=== PATIENT | male | born 1945 | race Caucasian/White ===

== ENCOUNTER 2018-10-07 16:47 | Outpatient (REF) | payer OTHER, SELFPAY ==
[2018-10-07 21:04] LABS: Anion Gap 6.9 mmol/L (3-11); BUN 24 mg/dL (7-18); CO2 27.1 mmol/L (21.0-32.0); CREATININE 1.17 mg/dL (0.70-1.30); Calcium 9.7 mg/dL (8.5-10.1); Chloride 105 mmol/L (98-107); Glucose 138 mg/dL (70-100); Potassium 4.6 mmol/L (3.5-5.1); Sodium 139 mmol/L (136-145)
== END 2018-10-07 17:07 ==
LOC: NCHCN 16:47
PROVIDERS: PCP Internal Medicine; Visit Provider Internal Medicine
DX: I95.9 Hypotension, unspecified (principal); E11.9 Type 2 diabetes mellitus without complications
CPT/HCPCS: 80048

== ENCOUNTER 2018-11-03 09:44 | Outpatient (REF) | payer OTHER, SELFPAY ==
[2018-11-03 22:35] LABS: COMMENT (LAB VIEW ONLY) 127.03 mg/dL; Microalb ug/mg Crea 6.5 ug/mg Cr
== END 2018-11-03 10:04 ==
LOC: NCHCN 09:44
PROVIDERS: PCP Internal Medicine; Visit Provider Internal Medicine
DX: E11.9 Type 2 diabetes mellitus without complications (principal)
CPT/HCPCS: 82043; 82570

== ENCOUNTER 2019-10-17 08:20 | Outpatient (REF) | payer OTHER, SELFPAY ==
[2019-10-17 21:19] LABS: Hemoglobin A1C 6.3 % (3.8-5.6)
[2019-10-17 21:30] LABS: ALT 29 U/L (16-63); AST 20 U/L (15-37); Albumin 3.8 g/dL (3.4-5.0); Alkaline Phosphatase 88 U/L (46-116); Anion Gap 8.8 mmol/L (3-11); BUN 16 mg/dL (7-18); Bilirubin, Total 0.8 mg/dL (0.2-1.0); CO2 29.2 mmol/L (21.0-32.0); CREATININE 1.35 mg/dL (0.70-1.30); Calcium 8.8 mg/dL (8.5-10.1); Calculated LDL 86 mg/dL (<100); Chloride 109 mmol/L (98-107); Cholesterol 142 mg/dL (<200); Estimated GFR 51.52 (mL/min/1.73m2); Glucose 124 mg/dL (74-106); HDL Cholesterol 35 mg/dL (40-60); Potassium 4.7 mmol/L (3.5-5.1); Sodium 147 mmol/L (136-145); Total Protein 6.9 g/dL (6.4-8.2); Triglyceride 106 mg/dL (<150)
== END 2019-10-17 08:40 ==
LOC: NCHCN 08:20
PROVIDERS: PCP Internal Medicine; Visit Provider Internal Medicine
DX: E11.9 Type 2 diabetes mellitus without complications (principal)
CPT/HCPCS: 80053; 80061; 83036

== ENCOUNTER 2020-04-16 13:19 | Outpatient (REF) | payer OTHER, SELFPAY ==
[2020-04-16 21:37] LABS: Anion Gap 9.8 mmol/L (3-11); BUN 12 mg/dL (7-18); CO2 25.2 mmol/L (21.0-32.0); CREATININE 1.34 mg/dL (0.70-1.30); Calcium 8.9 mg/dL (8.5-10.1); Chloride 107 mmol/L (98-107); Estimated GFR 51.97 (mL/min/1.73m2); Glucose 160 mg/dL (74-106); Potassium 4.6 mmol/L (3.5-5.1); Sodium 142 mmol/L (136-145)
[2020-04-16 21:54] LABS: Hemoglobin A1C 6.3 % (<5.7)
== END 2020-04-16 13:39 ==
LOC: NCHCN 13:19
PROVIDERS: PCP Internal Medicine; Visit Provider Internal Medicine
DX: E11.9 Type 2 diabetes mellitus without complications (principal)
CPT/HCPCS: 80048; 83036

== ENCOUNTER 2020-10-23 18:11 | Outpatient (REF) | payer OTHER, SELFPAY ==
[2020-10-23 17:30] LABS: HCT 46.5 % (40.0-50.0); HGB 15.3 g/dL (13.5-17.5); MCH 29.6 pg (27.0-33.0); MCHC 32.9 % (32.0-36.0); MCV 89.9 fL (80-95); MPV 10.7 fL (8.0-11.0); Platelet Count 271 10^3/uL (130-400); RBC 5.17 10^6/uL (4.36-5.78); RDW 12.8 % (11.8-14.1); RDW-SD 41.5 fL; WBC 8.47 10^3/uL (4.4-10.8)
[2020-10-23 17:48] LABS: ALT 24 U/L (16-63); AST 18 U/L (15-37); Albumin 3.7 g/dL (3.4-5.0); Alkaline Phosphatase 92 U/L (46-116); Anion Gap 8.2 mmol/L (3-11); BUN 20 mg/dL (7-18); Bilirubin, Total 0.7 mg/dL (0.2-1.0); CO2 27.8 mmol/L (21.0-32.0); CREATININE 1.1 mg/dL (0.70-1.30); Calcium 9.1 mg/dL (8.5-10.1); Chloride 107 mmol/L (98-107); Glucose 126 mg/dL (74-106); Potassium 4.8 mmol/L (3.5-5.1); Sodium 143 mmol/L (136-145); Total Protein 6.6 g/dL (6.4-8.2)
[2020-10-23 17:52] LABS: Hemoglobin A1C 6.6 % (<5.7)
== END 2020-10-23 18:12 | disposition home or self-care (01) ==
LOC: NCHCN 18:11
PROVIDERS: PCP Internal Medicine; Visit Provider Internal Medicine
DX: E11.9 Type 2 diabetes mellitus without complications (principal); Z79.01 Long term (current) use of anticoagulants; I48.0 Paroxysmal atrial fibrillation
CPT/HCPCS: 80053; 85027; 83036

== ENCOUNTER 2022-03-16 13:54 | Outpatient (REF) | payer OTHER, SELFPAY ==
[2022-03-16 15:12] LABS: HCT 47.6 % (40.0-50.0); HGB 15.5 g/dL (13.5-17.5); MCH 29.6 pg (27.0-33.0); MCHC 32.6 % (32.0-36.0); MCV 91 fL (80-95); MPV 10.5 fL (8.0-11.0); Platelet Count 300 10^3/uL (130-400); RBC 5.24 10^6/uL (4.36-5.78); RDW 12.5 % (11.8-14.1); RDW-SD 41.1 fL; WBC 9.28 10^3/uL (4.4-10.8)
[2022-03-16 15:27] LABS: Anion Gap 8.8 mmol/L (3-11); BUN 16 mg/dL (7-18); CO2 27.2 mmol/L (21.0-32.0); CREATININE 1.4 mg/dL (0.70-1.30); Calculated LDL 94 mg/dL (<100); Chloride 104 mmol/L (98-107); Cholesterol 155 mg/dL (<200); Estimated GFR 51.77 (mL/min/1.73m2); Glucose 119 mg/dL (74-106); HDL Cholesterol 42 mg/dL (40-60); Potassium 4.6 mmol/L (3.5-5.1); Sodium 140 mmol/L (136-145); Triglyceride 96 mg/dL (<150)
[2022-03-16 15:41] LABS: Hemoglobin A1C 6.4 % (<5.7)
== END 2022-03-16 13:55 | disposition home or self-care (01) ==
LOC: NCHCN 13:54
PROVIDERS: PCP Internal Medicine; Visit Provider Internal Medicine
DX: Z13.220 Encounter for screening for lipoid disorders (principal); Z51.81 Encounter for therapeutic drug level monitoring; Z78.9 Other specified health status; E11.9 Type 2 diabetes mellitus without complications; E66.9 Obesity, unspecified
CPT/HCPCS: 80048; 80061; 85027; 83036

== ENCOUNTER 2023-01-22 14:20 | Outpatient (REF) | payer OTHER, SELFPAY ==
[2023-01-22 16:22] LABS: COMMENT (LAB VIEW ONLY) 164.76 mg/dL; Microalb ug/mg Crea 8.9 ug/mg Cr
== END 2023-01-22 14:21 | disposition home or self-care (01) ==
LOC: NCHCN 14:20
PROVIDERS: PCP Internal Medicine; Visit Provider Internal Medicine
DX: E11.9 Type 2 diabetes mellitus without complications (principal)
CPT/HCPCS: 82043; 82570

== ENCOUNTER 2023-07-14 17:02 | Outpatient (REF) | payer OTHER, SELFPAY ==
[2023-07-14 14:36] LABS: HCT 36.4 % (40.0-50.0); HGB 10.8 g/dL (13.5-17.5); MCH 23.4 pg (27.0-33.0); MCHC 29.7 % (32.0-36.0); MCV 79 fL (80-95); MPV 10.1 fL (8.0-11.0); Platelet Count 328 10^3/uL (130-400); RBC 4.61 10^6/uL (4.36-5.78); RDW 15.2 % (11.8-14.1); RDW-SD 43.3 fL; WBC 8.31 10^3/uL (4.4-10.8)
[2023-07-14 15:22] LABS: ALT 18 U/L (16-63); AST 15 U/L (15-37); Albumin 3.5 g/dL (3.4-5.0); Alkaline Phosphatase 117 U/L (46-116); Anion Gap 8.6 mmol/L (3-11); BUN 20 mg/dL (7-18); Bilirubin, Total 0.4 mg/dL (0.2-1.0); CO2 27.4 mmol/L (21.0-32.0); CREATININE 1.3 mg/dL (0.70-1.30); Calcium 9.3 mg/dL (8.5-10.1); Chloride 107 mmol/L (98-107); Estimated GFR 55.88 (mL/min/1.73m2); Glucose 106 mg/dL (74-106); Potassium 4.9 mmol/L (3.5-5.1); Sodium 143 mmol/L (136-145); Total Protein 7.4 g/dL (6.4-8.2)
[2023-07-14 15:29] LABS: Hemoglobin A1C 6.6 % (<5.7)
[2023-07-14 18:01] LABS: Vitamin B12 288 pg/mL (193-986)
[2023-07-14 18:11] LABS: Iron 25 ug/dL (65-175)
[2023-07-14 18:25] LABS: Ferritin 14 ng/mL (26-388)
== END 2023-07-14 17:03 | disposition home or self-care (01) ==
LOC: NCHCN 17:02
PROVIDERS: PCP Internal Medicine; Visit Provider Internal Medicine
DX: N18.31 Chronic kidney disease, stage 3a (principal); E11.9 Type 2 diabetes mellitus without complications; D64.9 Anemia, unspecified; Z79.899 Other long term (current) drug therapy
CPT/HCPCS: 80053; 85027; 82607; 82728; 83036; 83540

== ENCOUNTER 2024-02-21 19:24 | Outpatient (REF) | payer OTHER, SELFPAY ==
[2024-02-21 16:59] LABS: HCT 44.7 % (40.0-50.0); HGB 13.8 g/dL (13.5-17.5); MCH 27.9 pg (27.0-33.0); MCHC 30.9 % (32.0-36.0); MCV 90 fL (80-95); MPV 10.6 fL (8.0-11.0); Platelet Count 197 10^3/uL (130-400); RBC 4.95 10^6/uL (4.36-5.78); RDW 15.9 % (11.8-14.1); RDW-SD 51.9 fL; WBC 11.01 10^3/uL (4.4-10.8)
[2024-02-21 17:31] LABS: Iron 107 ug/dL (65-175); Total Iron Binding Capacity 329 ug/dL (250-450); Transferrin Sat 33 % (20-55)
[2024-02-21 17:32] LABS: ALT 48 U/L (16-63); AST 17 U/L (15-37); Alkaline Phosphatase 157 U/L (46-116); Anion Gap 8.7 mmol/L (3-11); BUN 44 mg/dL (7-18); Bilirubin, Total 0.41 mg/dL (0.2-1.0); CO2 25.3 mmol/L (21.0-32.0); CREATININE 1.4 mg/dL (0.70-1.30); Calcium 9.2 mg/dL (8.5-10.1); Chloride 105 mmol/L (98-107); Estimated GFR 51.13 (mL/min/1.73m2); Glucose 472 mg/dL (74-106); Potassium 5.5 mmol/L (3.5-5.1); Sodium 139 mmol/L (136-145); Total Protein 6.1 g/dL (6.4-8.2)
[2024-02-21 18:28] LABS: Ferritin 245 ng/mL (26-388)
== END 2024-02-21 19:25 | disposition home or self-care (01) ==
LOC: NCHCN 19:24
PROVIDERS: PCP Internal Medicine; Visit Provider Internal Medicine
DX: N18.31 Chronic kidney disease, stage 3a (principal)
CPT/HCPCS: 80053; 85027; 82728; 83540; 83550

== ENCOUNTER 2024-04-03 15:05 | Outpatient (REF) | payer OTHER, SELFPAY ==
[2024-04-03 15:41] LABS: HCT 43.7 % (40.0-50.0); HGB 13.7 g/dL (13.5-17.5); MCHC 31.4 % (32.0-36.0); MCV 93 fL (80-95); MPV 10.1 fL (8.0-11.0); Platelet Count 217 10^3/uL (130-400); RBC 4.72 10^6/uL (4.36-5.78); RDW 17.8 % (11.8-14.1); RDW-SD 60.7 fL; WBC 15.34 10^3/uL (4.4-10.8)
[2024-04-03 17:08] LABS: ALT 58 U/L (16-63); AST 13 U/L (15-37); Alkaline Phosphatase 117 U/L (46-116); Anion Gap 7.7 mmol/L (3-11); CO2 25.3 mmol/L (21.0-32.0); CREATININE 1.2 mg/dL (0.70-1.30); Calcium 8.8 mg/dL (8.5-10.1); Chloride 105 mmol/L (98-107); Estimated GFR 61.52 (mL/min/1.73m2); Ferritin 232 ng/mL (26-388); Glucose 338 mg/dL (74-106); Potassium 5.1 mmol/L (3.5-5.1); Sodium 138 mmol/L (136-145); Total Protein 5.9 g/dL (6.4-8.2)
[2024-04-03 17:37] LABS: BUN 39 mg/dL (7-18); Bilirubin, Total 0.54 mg/dL (0.2-1.0)
[2024-04-03 18:51] LABS: Iron 117 ug/dL (65-175); Total Iron Binding Capacity 294 ug/dL (250-450); Transferrin Sat 40 % (20-55)
== END 2024-04-03 15:06 | disposition home or self-care (01) ==
LOC: NCHCN 15:05
PROVIDERS: PCP Internal Medicine; Visit Provider Internal Medicine
DX: R53.83 Other fatigue (principal)
CPT/HCPCS: 80053; 85027; 82728; 83540; 83550

== ENCOUNTER 2024-05-11 21:13 | Outpatient (REF) | payer OTHER, SELFPAY ==
[2024-05-11 21:54] LABS: Anion Gap 8.1 mmol/L (3-11); BUN 12 mg/dL (7-18); CO2 27.9 mmol/L (21.0-32.0); CREATININE 1.2 mg/dL (0.70-1.30); Calcium 9.5 mg/dL (8.5-10.1); Chloride 107 mmol/L (98-107); Estimated GFR 61.52 (mL/min/1.73m2); Glucose 98 mg/dL (74-106); Potassium 4.4 mmol/L (3.5-5.1); Sodium 143 mmol/L (136-145)
== END 2024-05-11 21:14 | disposition home or self-care (01) ==
LOC: NCHCN 21:13
PROVIDERS: PCP Internal Medicine; Visit Provider Internal Medicine
DX: I50.9 Heart failure, unspecified (principal)
CPT/HCPCS: 80048

== ENCOUNTER 2024-05-18 17:16 | Outpatient (REF) | payer OTHER, SELFPAY ==
[2024-05-18 22:08] LABS: Vitamin D 25 Total 16.8 ng/mL (30-100)
== END 2024-05-18 17:17 | disposition home or self-care (01) ==
LOC: NCHCN 17:16
PROVIDERS: PCP Internal Medicine; Visit Provider Internal Medicine
DX: S22.32XG Fracture of one rib, left side, subsequent encounter for fracture with delayed healing (principal)
CPT/HCPCS: 82306

== ENCOUNTER 2024-10-30 18:33 | Outpatient (REF) | payer OTHER, SELFPAY ==
[2024-10-30 17:07] LABS: BUN 21 mg/dL (7-18); CREATININE 1.2 mg/dL (0.70-1.30); Calcium 8.9 mg/dL (8.5-10.1); Chloride 106 mmol/L (98-107); Estimated GFR 61.13 (mL/min/1.73m2); Glucose 105 mg/dL (74-106); Potassium 4.6 mmol/L (3.5-5.1); Sodium 141 mmol/L (136-145)
== END 2024-10-30 18:34 | disposition home or self-care (01) ==
LOC: NCHCN 18:33
PROVIDERS: PCP Internal Medicine; Visit Provider Internal Medicine
DX: E11.9 Type 2 diabetes mellitus without complications (principal)
CPT/HCPCS: 80048